=== PATIENT | male | born 1985 | race Caucasian/White ===

== ENCOUNTER 2023-11-27 06:46 | Emergency (ER) | payer OTHER, SELFPAY ==
[2023-11-27 06:47] VITALS: BP 150/105; PULSE 81; RESP 16; TEMP 35.9; O2SAT 97; BMI 33.0
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
[2023-11-27 07:48] VITALS: BP 129/88; PULSE 76; RESP 15; TEMP 36.2; O2SAT 99
== END 2023-11-27 07:50 | disposition home or self-care (01) ==
LOC: ED 07:28
PROVIDERS: Emergency Provider Student in an Organized Health Care Education/Training Program; PCP Nurse Practitioner Family; Visit Provider Student in an Organized Health Care Education/Training Program
DX: T26.11XA Burn of cornea and conjunctival sac, right eye, initial encounter (principal); E11.9 Type 2 diabetes mellitus without complications; F17.210 Nicotine dependence, cigarettes, uncomplicated; X08.8XXA Exposure to other specified smoke, fire and flames, initial encounter; Y93.89 Activity, other specified; Y99.0 Civilian activity done for income or pay; Y92.89 Other specified places as the place of occurrence of the external cause; Z90.49 Acquired absence of other specified parts of digestive tract
CPT/HCPCS: 99283